=== PATIENT | male | born 1930 | race Caucasian/White ===

== ENCOUNTER 2020-11-01 11:53 | Inpatient (IN) ==
--- NOTE | 2020-11-01 12:31 | ERNOTE ---
Dizziness ER Record Date of Service: 11/01/20 Presenting Symptoms: dizziness Time Seen by Provider: 11/01/20 12:11 Source: patient Exam Limitations: no limitations Immunizations: IMMUNIZATION HX Immunizations Up to Date Yes Allergies/Adverse Reactions: Allergies Allergy/AdvReac Type Severity Reaction Status Date / Time No Known Allergies Allergy Verified 02/09/13 18:52 Home Medications: HOME MEDICATIONS NK 11/01/20 [Last Taken Unknown] - Pain Score Pain Score #1 Pain Score: 0 - History of Present Illness Narrative: The patient is a 89 year old male who presents for dizziness which has been present since this am. There are associated symptoms of fatigue and weakness. The patient denies pain. There are no alleviating factors. There are aggravating factors of activity. Previous treatments have included: none. The past medical history includes: noncontributory. The social history is negative. The patient has had ill contacts at work with unknown exposure but people at work have been positive. Patient states he awoke this am having increased weakness and fatigue. Patient proceeded to work but then became increasingly dizzy and left work. Patient states he was resting in his chair at home to aid with symptoms and was so weak he was unable to get himself out of his chair. Nursing having to use max assist of 2 to get patient out of POV and from wheelchair to bed. Review of Systems - Review of Systems Constitutional: Present: recent illness, weakness, fatigue, malaise. Absent: fever, chills EYE: Present: no symptoms reported ENT: Present: no symptoms reported. Absent: ear pain, nasal drainage, sore throat Respiratory: Present: no symptoms reported. Absent: shortness of breath, cough Cardiology: Present: no symptoms reported. Absent: chest pain Gastrointestinal/Abdominal: Present: eating less, drinking less. Absent: nausea, vomiting, diarrhea Genitourinary: Present: no symptoms reported. Absent: dysuria, decreased urinary output Musculoskeletal: Present: no symptoms reported Skin: Present: no symptoms reported. Absent: rash Neurological: Present: dizziness/light-headedness, weakness. Absent: headache All Other Systems: All systems neg except as marked Medical History (Last Reviewed 11/01/20 @ 13:52 by JOSÉ LUIS Bustamante) No pertinent past medical history Surgical History: Surgical History (Last Reviewed 11/01/20 @ 13:53 by JOSÉ LUIS Bustamante) Hx laparoscopic cholecystectomy Hx of hernia repair Family History: Family History (Last Reviewed 11/01/20 @ 13:53 by JOSÉ LUIS Bustamante) Other No pertinent family history Social History: (Last Reviewed 11/01/20 @ 13:53 by JOSÉ LUIS Bustamante) Social History: lives independently: Yes Tobacco: Smoking Status: Never smoker Physical Exam - Physical Exam General Appearance: Present: wd/wn, alert, mild distress, other - malaised Head Exam: Present: normal inspection, no evidence of injury Eye Exam: Normal inspection: bilateral, PERRL: bilateral, EOMI: bilateral Neck: Present: normal inspection, nontender, full range of motion Respiratory: Present: no respiratory distress, normal breath sounds, no accessory muscle use, lungs clear Cardiovascular/Chest: Present: regular rate, rhythm, no murmur Peripheral Pulses: N=norm/S=strong/W=weak/B=bound/A=absent: Radial (R): Normal Gastrointestinal/Abdominal: Present: normal bowel sounds, nontender, nondistended, soft, no organomegaly Extremity Exam: Present: extremity edema - 1+ pitting bilateral lower extremities Neurological Exam: Present: alert, oriented, normal mood/affect, no motor/sensory deficits, 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 11/01/20 15:00 In to review imaging and labs with patient, following IV hydration patient is feeling better. Will attempt to ambulate patient to ensure that he is strong enough for discharge if he wishes to do so. 11/01/20 16:57 Nursing staff in to evaluate if patient is able to get self up and patient unable to stand at bedside even with minimal assist of 1. Discussed with patient that do not feel safe with discharge home independently due to his persistent weakness. Patient agrees to admission. Case was reviewed with case management and , will admit for observation. - Results and Orders Patient's Lab Results:: I have reviewed the patient's lab results. - Vital Signs Patient's Vital Signs:: I have reviewed the patient's vital signs. Vital Signs: Vital Signs 12/10/20 11:55 Temperature 36.9 C Pulse Rate 82 Respiratory Rate 20 Blood Pressure 153/98 H O2 Sat by Pulse Oximetry 96 - EKG EKG #1 EKG: NSR, RBBB EKG read: Reviewed by me - X-Ray X-Ray #1 X-Ray: chest Interpretation: Reviewed by me X-ray Comments: IMPRESSION: 1. LINEAR PLATELIKE ATELECTASIS IN THE RIGHT LUNG BASE. 2. OTHERWISE NO ACUTE CARDIOPULMONARY ABNORMALITY IDENTIFIED. Electronically signed by Lei Hunter D.O.. - CT/Ultrasound CT/Ultrasound Narrative: IMPRESSION: NO ACUTE INTRACRANIAL ABNORMALITY IDENTIFIED. Electronically signed by Lei Hunter D.O.. - Progress/Reassessment Chief Complaint: Dizziness Departure Clinical Impression: Weakness - Departure Disposition: Still a patient Condition: Fair
[2020-11-01 12:33] LABS: Hematocrit 43.8 % (42.0-52.0); Hemoglobin 14.4 gm/dL (13.5-18.0); Mean Cell Volume 90.1 fl (78-100); Mean Corpuscular Hemoglobin 29.6 pg (27-31); Mean Corpuscular Hgb Conc 32.9 g/dl (32-36); Mean Platelet Volume 10.3 fl (8-11.3); Neutrophil % 74.5 % (42-75.0); Platelet Count 212 K/mm3 (150-450); Red Blood Count 4.86 M/mm3 (4.7-6.0); Red Cell Distribution Width 13.3 % (11.5-14.0); White Blood Count 6.7 K/mm3 (4.0-10.5)
[2020-11-01 12:49] LABS: Prothrombin Time (Patient) 10.3 Seconds (9.1-10.7)
[2020-11-01 12:54] LABS: INR 1.04 INR (0.92-1.08); Partial Thrombolplastin Time 24.9 Seconds (24-32)
[2020-11-01 12:55] LABS: Urine Bilirubin Negative (NEGATIVE); Urine Blood Negative /ul (NEGATIVE); Urine Ketone Negative (NEGATIVE); Urine Nitrite Negative (NEGATIVE); Urine Protein 15 mg/dL (NEGATIVE); Urine Urobilinogen Normal (NORMAL); Urine pH 6.5 pH (5.0-7.0)
[2020-11-01 12:58] LABS: ALT 20 U/L (19-67); AST 18 U/L (0-48); Alkaline Phosphatase * 83 U/L (50-170); BNP * 173 pg/mL (5-650); BUN/Creatinine Ratio 24.5 (9.0-21.6); Bilirubin, Total 1.2 mg/dL (0.0-1.1); Blood Urea Nitrogen 23 mg/dL (6-23); Ca. Corrected For Albumin 9.4 mg/dL (8.4-10.2); Calcium * 9.7 mg/dL (7.9-10.9); Carbon Dioxide 26.9 mmol/L (24-32.6); Chloride 104 mmol/L (97-106); Glucose * 133 mg/dL (70-110); Potassium 3.9 mmol/L (3.4-4.6); Sodium 139 mmol/L (132-142); Total Protein 7.5 gm/dL (6.2-8.2)
[2020-11-01 12:59] LABS: Troponin I Less than 0.017 ng/mL (0.00-0.10)
[2020-11-01 13:06] LABS: Urine Appearance Clear (CLEAR); Urine Bacteria TRACE; Urine Color Yellow; Urine RBC TRACE /hpf (0-5); Urine WBC TRACE /hpf (0-5)
[2020-11-01] MEDS ORDERED: NORMAL SALINE 500 ML IV PRN (14:02)
[2020-11-01] MEDS ORDERED: NORMAL SALINE 1,000 ML IV PRN (17:24)
--- NOTE | 2020-11-01 22:47 | HP ---
Chief Complaint - Chief Complaint Date of Service: 11/01/20 Time of Service: 17:00 Chief Complaint: Dizziness, weakness History of Present Illness: Venu is an 89 yo male who was at work when he became significantly dizzy this morning. He reported fatigue and weakness. He continued to work but symptoms progressively made this more difficulty. He was taken home and sat down in his recliner. He then found himself to be so weak he could not get out of the recliner. He was brought to the [facility] ER due to this worsening weakness. He reports some people at work have been positive for COVID but he does not recall direct contact with them. He denies cough, fever, chills, nausea, or vomiting. He reports no other recent changes. He does not take medication or routinely see a physician. He does report that in the last 6 months his signature has gone from being nice and smooth to jagged. He denies tremor. Blood pressure has been elevated since arriving in the ER ranging from 170-200 systolic. Medical History (Last Reviewed 11/01/20 @ 18:03 by Tasia Jose RN) No pertinent past medical history Surgical History: Surgical History (Last Reviewed 11/01/20 @ 18:04 by Tasia Jose RN) Hx laparoscopic cholecystectomy Hx of hernia repair Family History: Family History (Last Reviewed 11/01/20 @ 18:05 by Tasia Jose RN) Other No pertinent family history Social History: (Last Updated 11/01/20 @ 18:06 by Tasia Jose RN) Social History: Marital status: / lives independently: Yes number of children: 3 current occupational status: employed Tobacco: Smoking Status: Never smoker Alcohol: alcohol intake: current alcohol intake frequency: holiday/special occasion counseling given: No Review Of Systems (GEN) - Review of Systems Generalized/Overall Review: Present: Weakness, Fatigue. Absent: Chills, Fever, Diaphoresis EENTM: Present: No Symptoms Reported Respiratory: Absent: Cough, Shortness of Breath Cardiac: Absent: Chest Pain, Edema, Palpitations, Syncope Abdominal: Absent: Nausea, Vomiting, Abdominal Pain Genitourinary: Absent: Burning, Frequency Musculoskeletal: Present: No Symptoms Reported Neurological: Present: Weakness. Absent: Numbness, Parasthesia, Tremors Skin: Present: No Symptoms Reported Endocrine: Present: No Symptoms Reported Immunizations: IMMUNIZATION HX Immunizations Up to Date Yes Allergies/Adverse Reactions: Allergies Allergy/AdvReac Type Severity Reaction Status Date / Time No Known Allergies Allergy Verified 02/09/13 18:52 Home Medications: HOME MEDICATIONS NK 11/01/20 [Last Taken Unknown] Exam - Exam Vital Signs: Vital Signs - Last Taken Temp 36.6 C 11/01/20 18:55 Pulse 72 11/01/20 18:55 Resp 16 11/01/20 18:55 BP 151/72 H 11/01/20 18:55 Pulse Ox 94 11/01/20 18:55 Constitutional: Present: Alert, Oriented x3, Cooperative ENT Exam: Present: hearing grossly normal Eye Exam: bilateral eye: normal inspection Respiratory: Present: lungs clear, normal breath sounds, no respiratory distress Cardiovascular/Chest: Present: regular rate, rhythm, no edema, no murmur Peripheral Pulses: radial (R): 2+, radial (L): 2+ Abdomen: Present: Normal bowel sounds, soft, nontender, nondistended Extremity: Present: normal inspection Skin Exam: Present: normal color, warm/dry, no cyanosis 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 Diagnostic Studies: Abnormal Lab Results 11/01/20 11/01/20 11/01/20 Range/Units 12:24 12:24 12:40 Lymphocytes % 16.6 L (20-51) % Lymphocytes # 1.11 L (1.5-3.5) k/mm3 BUN/Creatinine Ratio 24.5 H (9.0-21.6) Random Glucose 133 H (70-110) mg/dL Total Bilirubin 1.2 H (0.0-1.1) mg/dL Urine Protein 15 H (NEGATIVE) mg/dL Laboratory Results WBC 6.7 K/mm3 (4.0-10.5) 11/01/20 12:24 RBC 4.86 M/mm3 (4.7-6.0) 11/01/20 12:24 Hgb 14.4 gm/dL (13.5-18.0) 11/01/20 12:24 Hct 43.8 % (42.0-52.0) 11/01/20 12:24 MCV 90.1 fl (78-100) 11/01/20 12:24 MCH 29.6 pg (27-31) 11/01/20 12:24 MCHC 32.9 g/dl (32-36) 11/01/20 12:24 RDW 13.3 % (11.5-14.0) 11/01/20 12:24 Plt Count 212 K/mm3 (150-450) 11/01/20 12:24 MPV 10.3 fl (8-11.3) 11/01/20 12:24 Immature Gran % (Auto) 0.30 % (0.001-0.429) 11/01/20 12:24 Immature Gran # (Auto) 0.02 K/mm3 (0.000-0.0310) 11/01/20 12:24 Neutrophils % 74.5 % (42-75.0) 11/01/20 12:24 Lymphocytes % 16.6 % (20-51) L 11/01/20 12:24 Monocytes % 7.0 % (0.0-9) 11/01/20 12:24 Eosinophils % 1.3 % (0.0-3.0) 11/01/20 12:24 Basophils % 0.3 % (0.0-1.0) 11/01/20 12:24 Nucleated RBC % 0.0 k/mm3 (0-1) 11/01/20 12:24 Neutrophils # 5.0 K/mm3 (1.3-6.0) 11/01/20 12:24 Lymphocytes # 1.11 k/mm3 (1.5-3.5) L 11/01/20 12:24 Monocytes # 0.5 k/mm3 (0.0-1.0) 11/01/20 12:24 Eosinophils # 0.1 k/mm3 (0.0-0.7) 11/01/20 12:24 Absolute Basophils 0.0 k/mm3 (0.0-0.1) 11/01/20 12:24 PT 10.3 Seconds (9.1-10.7) 11/01/20 12:24 INR (Anticoag Therapy) 1.04 INR (0.92-1.08) 11/01/20 12:24 PTT (Nazario) 24.9 Seconds (24-32) 11/01/20 12:24 Sodium 139 mmol/L (132-142) 11/01/20 12:24 Plasma Sodium 140 mmol/L (130-142) 11/01/20 12:24 Potassium 3.9 mmol/L (3.4-4.6) 11/01/20 12:24 Chloride 104 mmol/L (97-106) 11/01/20 12:24 Carbon Dioxide 26.9 mmol/L (24-32.6) 11/01/20 12:24 Anion Gap 12.0 mmol/L (6.8-13.8) 11/01/20 12:24 BUN 23 mg/dL (6-23) 11/01/20 12:24 Creatinine 0.94 mg/dL (0.4-1.4) 11/01/20 12:24 Est GFR (Non-Af Amer) 81 mL/min (60-130) 11/01/20 12:24 BUN/Creatinine Ratio 24.5 (9.0-21.6) H 11/01/20 12:24 Random Glucose 133 mg/dL (70-110) H 11/01/20 12:24 Lactic Acid, Venous 1.8 mmol/L (0.4-2.0) 11/01/20 12:24 Calcium 9.7 mg/dL (7.9-10.9) 11/01/20 12:24 Calcium Adj for Albumin 9.4 mg/dL (8.4-10.2) 11/01/20 12:24 Total Bilirubin 1.2 mg/dL (0.0-1.1) H 11/01/20 12:24 AST 18 U/L (0-48) 11/01/20 12:24 ALT 20 U/L (19-67) 11/01/20 12:24 Alkaline Phosphatase 83 U/L (50-170) 11/01/20 12:24 Troponin I Less than 0.017 ng/mL (0.00-0.10) 11/01/20 12:24 B-Natriuretic Peptide 173 pg/mL (5-650) 11/01/20 12:24 Total Protein 7.5 gm/dL (6.2-8.2) 11/01/20 12:24 Albumin 4.0 gm/dl (3.4-5.0) 11/01/20 12:24 Urine Color Yellow 11/01/20 12:40 Urine Appearance Clear (CLEAR) 11/01/20 12:40 Urine pH 6.5 pH (5.0-7.0) 11/01/20 12:40 Ur Specific [place] 1.020 SP.GR. (1.005-1.030) 11/01/20 12:40 Urine Protein 15 mg/dL (NEGATIVE) H 11/01/20 12:40 Urine Glucose (UA) Negative mg/dL (NEGATIVE) 11/01/20 12:40 Urine Ketones Negative mg/dL (NEGATIVE) 11/01/20 12:40 Urine Blood Negative /ul (NEGATIVE) 11/01/20 12:40 Urine Nitrate Negative (NEGATIVE) 11/01/20 12:40 Urine Bilirubin Negative mg/dl (NEGATIVE) 11/01/20 12:40 Prot Sulfosalicylic Acd 1+ mg/dL (0) 11/01/20 12:40 Urine Urobilinogen Normal EU/dl (NORMAL) 11/01/20 12:40 Ur Leukocyte Esterase Negative /ul (NEGATIVE) 11/01/20 12:40 Urine RBC Trace /hpf (0-5) 11/01/20 12:40 Urine WBC Trace /hpf (0-5) 11/01/20 12:40 Ur Epithelial Cells Trace /hpf (0-5) 11/01/20 12:40 Urine Bacteria Trace (NONE) 11/01/20 12:40 Urine Culture Comments No culture indicated 11/01/20 12:40 SARS-CoV-2 (PCR) Not detected (NotDetected) 11/01/20 13:55 Assessment/Plan - Narrative Narrative: Venu is an 89 yo male with an abrupt case of weakness. He has no focal abnormalities and upon individual strength testing appears to have good strength, yet unable to stand and walk without assistance. This is a significant change as he was fully independent and was still actively working. Head CT was negative for stroke. He is unable to be discharged to home from the ER as he cannot stand. He will be admitted to observation and I will consult PT, OT, and further evaluate with Brain MRI. He potentially could have an acute infarct. COVID testing was negative but he may have been exposed at work, he does not have typical COVID symptoms. His blood pressure has been significantly elevated in the ER. I am not sure if this is acute or chronic. If chronic it would be a risk factor for possible stroke. Will monitor and treat if persistent. Will admit to observation at this time as he does not have any acute diagnosis at this time. If brain MRI shows stroke or he fails observation and remains unable to stand will need to stay and make inpatient for further therapy. - Assessment/Plan (1) Weakness Problem: Acute (2) Hypertension Problem: Acute Qualifiers: Hypertension type: unspecified Qualified Code(s): I10 - Essential (primary) hypertension
[2020-11-02] MEDS ORDERED: hydrALAZINE HCL 10 MG TABLET PO ONE (03:17)
[2020-11-02] MEDS: LOSARTAN POTASSIUM 50 MG TABLET PO SCH (09:40)
[2020-11-02] MEDS: HYDROCHLOROTHIAZIDE 25 MG TABLET PO SCH ×2 (09:40→11:22)
[2020-11-02] MEDS ORDERED: CLOPIDOGREL BISULFATE 75 MG TABLET PO ONE (12:19)
[2020-11-02] MEDS: ROSUVASTATIN CALCIUM 20 MG TABLET PO SCH (21:14)
--- NOTE | 2020-11-02 23:34 | PN ---
Subjective - Date and Time Seen Date: 11/02/20 Time: 08:30 Subjective Narrative: Venu reports feeling a little stronger today, but still has difficulty standing. No fever, chills, nausea, or vomiting. Brain MRI done today which did show stroke. Objective - Vitals Vitals: Last Vital Signs Temp 37 C 11/02/20 18:29 Pulse 78 11/02/20 18:29 Resp 20 11/02/20 18:29 BP 155/90 H 11/02/20 18:29 Pulse Ox 95 11/02/20 18:29 - Exam Constitutional: Present: Alert, Oriented x3, Cooperative, No distress ENT Exam: Present: hearing grossly normal Respiratory: Present: lungs clear, normal breath sounds Cardiovascular/Chest: Present: regular rate, rhythm, no edema, no murmur Abdomen: Present: Normal bowel sounds, soft, nontender, nondistended Extremity: Present: normal inspection Skin Exam: Present: normal color, warm/dry, no cyanosis Neurologic: Present: no motor/sensory deficits, alert, normal mood/affect, oriented x 3, other - motor has good strength but he has difficulty with coordinating standing and walking Appearance: Present: appropriate insight Eye contact: Present: cooperative, good eye contact, normal speech Thoughts: Present: normal thought pattern, no apparent hallucination Assessment/Plan Plan Narrative: MRI showed evidence of stroke acute and chronic. Consulted PT, OT, and ST. Started plavix and crestor. Anticipate working with therapies for the next few days and will plan for discharge in 3-4 days to home or rehab based on his progress. Blood pressure remains elevated. Started losartan and HCTZ. Will monitor and adjust as needed. Due to acute stroke he was changed from observation to acute inpatient status today. 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
[2020-11-03] MEDS: CLOPIDOGREL BISULFATE 75 MG TABLET PO SCH (08:11)
[2020-11-03] MEDS: LOSARTAN POTASSIUM 50 MG TABLET PO SCH (08:11)
[2020-11-03] MEDS: HYDROCHLOROTHIAZIDE 25 MG TABLET PO SCH (10:31)
--- NOTE | 2020-11-03 11:42 | PN ---
Subjective - Date and Time Seen Date: 11/03/20 Time: 11:34 Subjective Narrative: I still fall backwards when I attempt to stand or walk. Objective Objective Narrative: 89-year-old male admitted for acute CVA and hypertension was evaluated at bedside and was found to be afebrile and in no acute distress. Yesterday's brain MRI confirmed the suspicion of acute stroke affecting the patient's right parietal lobe. Statins, Plavix, and aspirin was started per guidelines and physical therapy as well as Occupational Therapy were ordered. The therapist reports in her notes that the patient continues to have significant deficits that affects his balance, he still needing to assist with his new for him. She is recommending several weeks of physical and occupational therapy for ongoing rehab. This morning his blood pressure is better controlled after he was started on antihypertensives. Neurological examination been at bedside this morning revealed left-sided weakness compared to right but sensations are intac t. The patient does not present slurred speech but on close observation a slight facial droop is noted on the left side. We will keep the patient throughout the weekend and continue his rehab. - Review of Systems Generalized/Overall Review: Reports: No Symptoms Reported EENTM: Reports: No Symptoms Reported Respiratory: Reports: No Symptoms Reported Cardiac: Reports: No Symptoms Reported Abdominal: Reports: No Symptoms Reported Genitourinary Symptoms: Reports: No Symptoms Reported Musculoskeletal Complaints: Reports: No Symptoms Reported Neurological: Reports: Weakness, Other - Left sided weakness of upper and lower extremity Skin: Reports: No Symptoms Reported Endocrine: Reports: No Symptoms Reported - Vitals Vitals: Last Vital Signs Temp 37.0 C 11/03/20 10:13 Pulse 85 11/03/20 10:13 Resp 18 11/03/20 10:13 BP 146/77 11/03/20 10:13 Pulse Ox 93 11/03/20 10:13 - Exam Constitutional: Present: Alert, Oriented x3, Cooperative, Well developed, Well nourished, No distress, Elderly ENT Exam: Present: normal ENT inspection, hearing grossly normal Neck: Present: non-tender, full range of motion, supple, normal inspection, trachea midline Breasts: Present: Exam deferred, Nontender Respiratory: Present: chest non-tender, lungs clear, normal breath sounds, no respiratory distress, no accessory muscle use Cardiovascular/Chest: Present: normal peripheral pulses, regular rate, rhythm, no chest tenderness, no edema, no gallop, no JVD, no murmur, no rub Abdomen: Present: Normal bowel sounds, soft, nontender, nondistended, no rebound tenderness, no hepatospenomegaly, no masses /Rectal: Present: Exam deferred Extremity: Present: normal range of motion, non-tender, normal inspection, no pedal edema, no calf tenderness, normal capillary refill Skin Exam: Present: normal color, warm/dry, no cyanosis Lymphatic: Present: no adenopathy Neurologic: Present: alert, normal mood/affect, oriented x 3, abnormal drug and alcohol counselor II- XII - Left hemiparesis and left facial droop, facial droop Appearance: Present: appropriate appearance, appropriate insight, neat, no memory impairment Eye contact: Present: cooperative, good eye contact, normal speech Thoughts: Present: normal thought pattern, no apparent hallucination Assessment/Plan Plan Narrative: We will continue the current management and continue to watch the patient closely. 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
[2020-11-03] MEDS: METOPROLOL TARTRATE 50 MG TABLET PO SCH (17:13)
[2020-11-03] MEDS: ROSUVASTATIN CALCIUM 20 MG TABLET PO SCH (21:59)
[2020-11-04] MEDS: LOSARTAN POTASSIUM 50 MG TABLET PO SCH (09:26)
[2020-11-04] MEDS: CLOPIDOGREL BISULFATE 75 MG TABLET PO SCH (09:27)
[2020-11-04] MEDS: HYDROCHLOROTHIAZIDE 25 MG TABLET PO SCH (11:22)
[2020-11-04] MEDS: METOPROLOL TARTRATE 50 MG TABLET PO SCH (11:22)
--- NOTE | 2020-11-04 12:17 | PN ---
Subjective - Date and Time Seen Date: 11/04/20 Time: 12:10 Subjective Narrative: I still fall backwards, I feel the same. Objective Objective Narrative: 89-year-old male admitted for acute CVA and hypertension was evaluated at bedside and was found to be afebrile and in no acute distress. Patient continues to present left hemiparesis and left-sided facial droop on physical exam but no paresthesias or significant dysarthria is noted. Is oriented x3 and is able to report the deficits that he is noticing, his biggest concern being falling backwards or forward when he attempts to walk. It was explained to patient that with acute CVAs it is difficult to know what the residual effects would be but will continue PT and OT to address these deficits and it is very likely that he will continue rehab once he leaves [facility]. His blood pressure has improved and he is tolerating all of the new medications that were ordered per CVA guideline. We will continue to monitor him closely. - Review of Systems Generalized/Overall Review: Reports: No Symptoms Reported EENTM: Reports: No Symptoms Reported Respiratory: Reports: No Symptoms Reported Cardiac: Reports: No Symptoms Reported Abdominal: Reports: No Symptoms Reported Genitourinary Symptoms: Reports: No Symptoms Reported Musculoskeletal Complaints: Reports: No Symptoms Reported Neurological: Reports: Weakness - Left-sided weakness, Pre-existing Deficit, Other - Falling backwards or forward with standing Skin: Reports: No Symptoms Reported Endocrine: Reports: No Symptoms Reported - Vitals Vitals: Last Vital Signs Temp 37.1 C 11/04/20 10:10 Pulse 81 11/04/20 11:22 Resp 18 11/04/20 10:10 BP 138/77 11/04/20 11:22 Pulse Ox 92 L 11/04/20 10:10 - Exam Constitutional: Present: Alert, Oriented x3, Cooperative, Well developed, Well nourished, No distress, Elderly ENT Exam: Present: normal ENT inspection, hearing grossly normal Neck: Present: non-tender, full range of motion, supple, normal inspection, trachea midline Breasts: Present: Exam deferred, Nontender Respiratory: Present: chest non-tender, lungs clear, normal breath sounds, no respiratory distress, no accessory muscle use Cardiovascular/Chest: Present: normal peripheral pulses, regular rate, rhythm, no chest tenderness, no edema, no gallop, no JVD, no murmur, no rub Abdomen: Present: Normal bowel sounds, soft, nontender, nondistended, no rebound tenderness, no hepatospenomegaly, no masses, obese /Rectal: Present: Exam deferred Extremity: Present: normal range of motion, non-tender, normal inspection, no pedal edema, no calf tenderness, normal capillary refill, pelvis stable Skin Exam: Present: normal color, warm/dry, no cyanosis Lymphatic: Present: no adenopathy Neurologic: Present: alert, normal mood/affect, oriented x 3, abnormal cerebellar tests, abnormal production broacher II-XII - Left hemiparesis, facial droop, motor weakness Appearance: Present: appropriate appearance, appropriate insight, neat, no memory impairment Eye contact: Present: cooperative, good eye contact, normal speech Thoughts: Present: normal thought pattern, no apparent hallucination Assessment/Plan Plan Narrative: We will keep the patient an additional day for close monitoring and PT and OT. 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
[2020-11-04] MEDS: ASPIRIN 325 MG TABLET.DR PO SCH (15:48)
[2020-11-04] MEDS: ROSUVASTATIN CALCIUM 20 MG TABLET PO SCH (21:29)
[2020-11-05] MEDS: LOSARTAN POTASSIUM 50 MG TABLET PO SCH (08:44)
[2020-11-05] MEDS: CLOPIDOGREL BISULFATE 75 MG TABLET PO SCH (08:44)
[2020-11-05] MEDS: METOPROLOL TARTRATE 50 MG TABLET PO SCH (08:44)
[2020-11-05] MEDS: ASPIRIN 325 MG TABLET.DR PO SCH (08:46)
[2020-11-05] MEDS: HYDROCHLOROTHIAZIDE 25 MG TABLET PO SCH (10:47)
[2020-11-05] MEDS: ROSUVASTATIN CALCIUM 20 MG TABLET PO SCH (21:31)
--- NOTE | 2020-11-05 23:52 | PN ---
Subjective - Date and Time Seen Date: 11/05/20 Time: 15:45 Subjective Narrative: He reports no pain. He says therapy did not go well. He has no concerns. Reports eating ok. No fever, chills, nausea, or vomiting. Objective - Vitals Vitals: Last Vital Signs Temp 36.3 C 11/05/20 21:37 Pulse 63 11/05/20 21:37 Resp 20 11/05/20 21:37 BP 141/78 11/05/20 21:37 Pulse Ox 93 11/05/20 21:37 - Exam Constitutional: Present: Alert, Oriented x3, Cooperative Respiratory: Present: lungs clear, normal breath sounds, no respiratory distress Cardiovascular/Chest: Present: regular rate, rhythm Abdomen: Present: Normal bowel sounds, soft, nontender, nondistended Assessment/Plan Plan Narrative: Acute stroke, no significant improvement today. Would benefit from stroke rehab. Continue aspirin, plavix, crestor, and therapies. 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
[2020-11-06] MEDS: ASPIRIN 325 MG TABLET.DR PO SCH (09:21)
[2020-11-06] MEDS: LOSARTAN POTASSIUM 50 MG TABLET PO SCH (09:21)
[2020-11-06] MEDS: CLOPIDOGREL BISULFATE 75 MG TABLET PO SCH (09:22)
[2020-11-06] MEDS: METOPROLOL TARTRATE 50 MG TABLET PO SCH (09:22)
[2020-11-06] MEDS: HYDROCHLOROTHIAZIDE 25 MG TABLET PO SCH (12:33)
[2020-11-06] MEDS: ROSUVASTATIN CALCIUM 20 MG TABLET PO SCH (20:56)
--- NOTE | 2020-11-06 23:05 | PN ---
Subjective - Date and Time Seen Date: 11/06/20 Time: 12:00 Subjective Narrative: Did not converse with me today. Worsening weakness. Decreased appetite. Objective - Vitals Vitals: Last Vital Signs Temp 36.8 C 11/06/20 17:08 Pulse 70 11/06/20 17:08 Resp 12 11/06/20 17:08 BP 140/68 11/06/20 17:08 Pulse Ox 94 11/06/20 17:08 - Exam Constitutional: Present: Alert, Other - Did not talk or make eye contact when spoken too today. Absent: Oriented x3 Respiratory: Present: lungs clear, normal breath sounds Cardiovascular/Chest: Present: regular rate, rhythm, no edema Abdomen: Present: Normal bowel sounds, soft, nontender, nondistended Skin Exam: Present: normal color, warm/dry, no cyanosis Assessment/Plan Plan Narrative: Worsening neurological function. Head CT performed today to evaluate for hemmoragic conversion, this was negative. Evidence of maturation of stroke and clinically stroke is extending. Currently on plavix and aspirin and crestor. Blood pressure is controlled adn I do not believe it was corrected too quickly or dropped extensively. Plan to discharge to SNF tomorrow. If he does not improve in the next couple weeks, may need to consider hospice. 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
[2020-11-07] MEDS: LOSARTAN POTASSIUM 50 MG TABLET PO SCH (09:05)
[2020-11-07] MEDS: METOPROLOL TARTRATE 50 MG TABLET PO SCH (09:05)
[2020-11-07] MEDS: ASPIRIN 325 MG TABLET.DR PO SCH (09:05)
[2020-11-07] MEDS: CLOPIDOGREL BISULFATE 75 MG TABLET PO SCH (09:06)
--- NOTE | 2020-11-07 09:44 | DS ---
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 He presented to the ER without obvious signs of a stroke but was unable to stand and walk. There were no lateralizing symptoms present. Head CT showed no acute changes. His blood pressure was elevated significantly. He was admitted to work on strength as he was unable to walk due to generalized acute weakness. He had a brain MRI in the hospital that showed: MULTIPLE FOCAL AREAS OF INCREASED SIGNAL IN THE MEDIAL RIGHT PARIETAL LOBE REGION AND A SINGLE FOCUS WITHIN THE LEFT MID PARIETAL LOBE, SUGGESTING FOCAL AREAS OF ISCHEMIA. CONSIDER EMBOLIC ETIOLOGY. 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 He was started on plavix, aspirin, and crestor. He was started on blood pressure medication to lower his blood pressure as it was >180. During hospital course his symptoms gradually worsened. A head CT was repeated to make sure he did not have hemorrhagic conversion of stroke and he did not. His stroke has significantly worsened to the point that he does not follow commands and does not communicate. He is not a candidate for stroke rehab at [facility]. He will be discharged today to [facility] to [facility] for an attempt at rehab. However if he does not show signs of improvement in the next couple weeks his condition is severe enough to consider hospice as he is fully dependent on others at this time for all ADLs. Procedures Performed: none Results and Findings: Lab Pending Results 11/01/20 12:24: WBC 6.7, RBC 4.86, Hgb 14.4, Hct 43.8, MCV 90.1, MCH 29.6, MCHC 32.9, RDW 13.3, Plt Count 212, MPV 10.3, Immature Gran % (Auto) 0.30, Immature Gran # (Auto) 0.02, Neutrophils % 74.5, Lymphocytes % 16.6 L, Monocytes % 7.0, Eosinophils % 1.3, Basophils % 0.3, Nucleated RBC % 0.0, Neutrophils # 5.0, Lymphocytes # 1.11 L, Monocytes # 0.5, Eosinophils # 0.1, Absolute Basophils 0.0 11/01/20 12:24: Sodium 139, Plasma Sodium 140, Potassium 3.9, Chloride 104, Carbon Dioxide 26.9, Anion Gap 12.0, BUN 23, Creatinine 0.94, Est GFR (Non-Af Amer) 81, BUN/Creatinine Ratio 24.5 H, Random Glucose 133 H, Calcium 9.7, Calcium Adj for Albumin 9.4, Total Bilirubin 1.2 H, AST 18, ALT 20, Alkaline Phosphatase 83, Troponin I Less than 0.017, B-Natriuretic Peptide 173, Total Protein 7.5, Albumin 4.0 11/01/20 12:24: Lactic Acid, Venous 1.8 11/01/20 12:24: PT 10.3, INR (Anticoag Therapy) 1.04, PTT (Nazario) 24.9 11/01/20 12:40: Urine Color Yellow, Urine Appearance Clear, Urine pH 6.5, Ur Specific [place] 1.020, Urine Protein 15 H, Urine Glucose (UA) Negative, Urine Ketones Negative, Urine Blood Negative, Urine Nitrate Negative, Urine Bilirubin Negative, Prot Sulfosalicylic Acd 1+, Urine Urobilinogen Normal, Ur Leukocyte Esterase Negative, Urine RBC Trace, Urine WBC Trace, Ur Epithelial Cells Trace, Urine Bacteria Trace, Urine Culture Comments No culture indicated 11/01/20 13:55: SARS-CoV-2 (PCR) Not detected Discharge Location: [facility] Disposition: SNF Condition: Poor Level of Care: SNF Discharge Activity: Activity as tolerated Discharge Diet: General/regular food [facility] Therapy: Physical Therapy, Occupation Therapy, Speech Therapy Referrals: Gary Storey DO [Primary Care Provider] - One Week (Video visit prn) Problem Oriented Discharge Instructions to Patient/Family: Ischemic Stroke, Ea sy-to-Read Additional Patient Instructions (free text): [facility]- PT/OT, Speech Therapy to evaluate and treat. Please fax discharge orders, medications, and discharge summary and call report. Prescriptions (Any new or edited meds): Aspirin [Aspirin Enteric Coated] 325 mg PO DAILY #30 tablet.dr Transmission Status: Pending to [facility] Losartan Potassium [Cozaar] 50 mg PO DAILY #30 tab Transmission Status: Pending to [facility] Rosuvastatin Calcium [Crestor] 20 mg PO HS #30 tab Transmission Status: Pending to [facility] Hydrochlorothiazide [Hydrodiuril] 25 mg PO DAILY #30 tab Transmission Status: Pending to [facility] Clopidogrel Bisulfate [Plavix] 75 mg PO DAILY #30 tab Transmission Status: Pending to [facility] Complete Home Medications List: Complete Home Medication List: Aspirin [Aspirin Enteric Coated] 325 mg PO DAILY #30 tablet. 11/07/20 Clopidogrel Bisulfate [Plavix] 75 mg PO DAILY #30 tab 11/07/20 Hydrochlorothiazide [Hydrodiuril] 25 mg PO DAILY #30 tab 11/07/20 Losartan Potassium [Cozaar] 50 mg PO DAILY #30 tab 11/07/20 Rosuvastatin Calcium [Crestor] 20 mg PO HS #30 tab 11/07/20 Forms: Patient Portal Registration
[2020-11-07] MEDS: HYDROCHLOROTHIAZIDE 25 MG TABLET PO SCH (10:07)
[2020-11-07 15:01] VITALS: BP 150/64
== END 2020-11-07 15:15 | DRG 65 ==
LOC: ER 11:53 → MS 11:53
PROVIDERS: ADMIT Family Medicine; ATTEND Family Medicine
DX: I63.10 Cerebral infarction due to embolism of unspecified precerebral artery; I45.10 Unspecified right bundle-branch block; G81.94 Hemiplegia, unspecified affecting left nondominant side; R29.810 Facial weakness; R53.1 Weakness; I10 Essential (primary) hypertension